=== PATIENT | male | born 1970 | race Caucasian/White ===

== ENCOUNTER 2017-10-31 01:56 | Emergency (ER) | payer MEDICARE ==
[2017-10-31] MEDS: ASPIRIN CHEWABLE 81 MG TABLET. PO ×2 (02:30)
[2017-10-31] MEDS: NITROGLYCERIN OINT 1 GM PACKET. TP ×2 (02:30)
[2017-10-31 02:44] LABS: ADD MAN DIFF? NO
[2017-10-31] MEDS ORDERED: CONTRAST GIVEN MC ×2 (02:45)
[2017-10-31 02:47] LABS: BASO % 1 % (0-3); EOS # 0.1 x10^3/uL (0.0-0.7); EOS % 1 % (0-3); HEMATOCRIT 45.2 % (39.0-53.0); HEMOGLOBIN 15.3 g/dL (13.0-17.5); LYMPH # 1.7 x10^3/uL (1.0-4.8); LYMPH % 26 % (24-48); MEAN CORPUSCULAR HEMOGLOBIN 28 pg (25-35); MEAN CORPUSCULAR HGB CONC 34 g/dL (31-37); MEAN CORPUSCULAR VOLUME 83 fL (79-100); MONO # 0.6 x10^3/uL (0.0-1.1); MONO % 10 % (0-9); NEUT % 62 % (31-73); PLATELET COUNT 194 x10^3/uL (140-400); RED BLOOD COUNT 5.45 x10^6/uL (4.30-5.70); WHITE BLOOD COUNT 6.4 x10^3/uL (4.0-11.0)
[2017-10-31 02:55] LABS: ANION GAP 4 (6-14); BLOOD UREA NITROGEN 16 mg/dL (8-26); BUN/CREATININE RATIO 13 (6-20); CALCIUM 9.2 mg/dL (8.5-10.1); CARBON DIOXIDE 32 mmol/L (21-32); CHLORIDE 105 mmol/L (98-107); CREATININE 1.2 mg/dL (0.7-1.3); GFR 64.9; GLUCOSE 122 mg/dL (70-99); POTASSIUM 4.2 mmol/L (3.5-5.1); SODIUM 141 mmol/L (136-145)
[2017-10-31 03:05] LABS: ALBUMIN 3.7 g/dL (3.4-5.0); ALBUMIN/GLOBULIN RATIO 1.2 (1.0-1.7); ALK PHOS 45 U/L (46-116); ALT (SGPT) 42 U/L (16-63); AST (SGOT) 20 U/L (15-37); TOTAL BILIRUBIN 0.3 mg/dL (0.2-1.0); TOTAL PROTEIN 6.9 g/dL (6.4-8.2)
[2017-10-31 03:09] LABS: TROPONINI < 0.017 ng/mL (0.000-0.055)
[2017-10-31] MEDS: IOHEXOL 300 MG/ML 100ML VIAL. IV ×2 (03:16)
[2017-10-31] MEDS ORDERED: KETOROLAC 30 MG/ML INJ. ×2 (05:14)
[2017-10-31] MEDS: KETOROLAC 30 MG/ML INJ. IV ×2 (05:15)
[2017-10-31] MEDS: ALPRAZolam 0.5 MG TABLET PO ×2 (05:57)
== END 2017-10-31 06:00 | disposition left against medical advice (07) ==
LOC: ER 01:56
DX: R07.89 Other chest pain (principal); F41.9 Anxiety disorder, unspecified; I25.10 Atherosclerotic heart disease of native coronary artery without angina pectoris; I10 Essential (primary) hypertension; E03.9 Hypothyroidism, unspecified; E10.9 Type 1 diabetes mellitus without complications; E78.00 Pure hypercholesterolemia, unspecified; Z79.82 Long term (current) use of aspirin; Z79.4 Long term (current) use of insulin
CPT/HCPCS: 36415; 71045; 71275; 74174; 80053; 84484; 85025; 93005; 96374; 99285-25; J1885; Q9967

== ENCOUNTER 2020-02-20 12:42 | Inpatient (IN) | payer MEDICARE ==
[~2020-02-20] VITALS: Ht 177.8 cm; Wt 93.0 kg
[~2020-02-20 12:42] MED LIST: CARV25TA PO; CARV25TA2 PO; FENO135C PO; LEVO100T5 PO; LISI10TA2 PO; METF500T16 PO; SIMV10TA15 PO
[2020-02-20] MEDS ORDERED: oxyCODONE/APAP 5/325 1 TAB TABLET PO PRN (13:00)
--- NOTE | 2020-02-20 13:00 | NUR ---
Pt direct admit. Arrived via wheelchair. Completed admission assessment. Initiated IV. Orders reviewed. Consults called. Oriented to room and routines. Water pitcher filled. Call light within reach. Will return to monitor.
--- NOTE | 2020-02-20 13:28 | PDOC2 ---
CONSULT Date of Consult Date of Consult DATE: 02/20/20 TIME: 13:18 Reason for Consult Reason for Consult: cholecystitis Referring Physician Referring Physician: Dr Larios Identification/Chief Complaint Chief Complaint vomiting Source Source: Chart review, Patient History of Present Illness Reason for Visit: Reports known gallstones for couple years. Last year pain to right side, back after eating. Last 2 weeks severe vomiting with eating, drinking, also reports multiple diarrhea stools a day for 2 weeks--some pain but main complaint is the vomiting. Does report chronic stools issues but this has been worse. No previous colonoscopy 60 pound weight loss in 18 months Does report probe tenderness with US today Past Medical History Cardiovascular: HTN, Hyperlipidemia Endocrine: Diabetes Past Surgical History Past Surgical History: Other (back) Family History Family History: No Significant Social History No ALCOHOL: other (4-6 beers most days of week) Drugs: Marijuana Current Medications Current Medications Current Medications Oxycodone/ Acetaminophen (Percocet 5/325) 1 tab PRN Q4HRS PRN PO MODERATE TO SEVERE PAIN; Start 02/20/20 at 13:00 Lorazepam (Ativan Inj) 2 mg PRN Q4HRS PRN IVP nausea; Start 02/20/20 at 13:00 Promethazine HCl (Phenergan) 12.5 mg PRN Q6HRS PRN PO NAUSEA/VOMITING; Start 02/20/20 at 13:00 Active Scripts Active Reported Trilipix (Fenofibric Acid (Choline)) 135 Mg Capsule. 1 Cap PO DAILY Coreg (Carvedilol) 25 Mg Tablet 1 Tab PO DAILY08 Lisinopril 10 Mg Tablet 1 Tab PO DAILY Simvastatin 10 Mg Tablet 1 Tab PO QHS Levothyroxine Sodium 100 Mcg Tablet 1 Tab PO DAILY Metformin Hcl 500 Mg Tablet 500 Mg PO BID Allergies Allergies: Coded Allergies: No Known Drug Allergies (Unverified , 06/17/17) ROS General: No: Chills, Other (fevers ) PSYCHOLOGICAL ROS: No: Anxiety, Depression Eyes: No Blurry vision, No Double vision HEENT: No: Heacaches, Sore Throat Hematological and Lymphatic: No: Bleeding Problems, Blood Clots Respiratory: No: Cough, SOB with excertion Cardiovascular: No Chest Pain, No Palpitations Gastrointestinal: Yes Other (see hpi) Genitourinary: No Dysuria, No Hematuria Musculoskeletal: No Joint Pain, No Muscle Pain Neurological: No Impaired Coord/balance, No Numbness/Tingling Skin: No Pruritus, No Rash Physical Exam General: Alert, Oriented X3, Cooperative HEENT: Atraumatic, PERRLA Lungs: Clear to auscultation, Normal air movement Heart: Regular rate, Normal S1, Normal S2 Abdomen: Soft, Other (TTP RUQ, nausea with palpation ) Extremities: No clubbing, No cyanosis Skin: No rashes, No breakdown Neuro: Normal gait, Normal speech Psych/Mental Status: Mental status NL, Mood NL MUSCULOSKELETAL: No joint tenderness, No deformity Assessment/Plan Assessment/Plan cholelithiasis diarrhea US reviewed cholelithiasis, no pericholecystitic fluid will ask GI to eval will check labs will check Covid for any possible surgery at some point BALDEMAR KNOWLES APRN Feb 20, 2020 13:28
[2020-02-20] MEDS ORDERED: DEXTROSE 50% 25 GM / 50ML DISP.SYRIN. IV PRN (13:30)
[2020-02-20 13:56] LABS: BASO % 1 % (0-3); EOS % 1 % (0-3); HEMATOCRIT 48.3 % (39.0-53.0); HEMOGLOBIN 16.9 g/dL (13.0-17.5); LYMPH # 0.8 x10^3/uL (1.0-4.8); LYMPH % 26 % (24-48); MEAN CORPUSCULAR HEMOGLOBIN 32 pg (25-35); MEAN CORPUSCULAR HGB CONC 35 g/dL (31-37); MEAN CORPUSCULAR VOLUME 92 fL (79-100); MONO # 0.5 x10^3/uL (0.0-1.1); MONO % 14 % (0-9); NEUT # 1.9 x10^3/uL (1.8-7.7); NEUT % 59 % (31-73); PLATELET COUNT 162 x10^3/uL (140-400); RED BLOOD COUNT 5.25 x10^6/uL (4.30-5.70); RED CELL DISTRIBUTION WIDTH 13.9 % (11.5-14.5); WHITE BLOOD COUNT 3.3 x10^3/uL (4.0-11.0)
[2020-02-20 14:05] LABS: PROTHROMBIN TIME PATIENT 12.7 SEC (11.7-14.0)
[2020-02-20 14:11] LABS: ALBUMIN 3.7 g/dL (3.4-5.0); ALBUMIN/GLOBULIN RATIO 1.2 (1.0-1.7); CALCIUM 8.4 mg/dL (8.5-10.1); CREATININE 1.1 mg/dL (0.7-1.3); GFR 71.1; POTASSIUM 4.1 mmol/L (3.5-5.1); TOTAL BILIRUBIN 0.9 mg/dL (0.2-1.0); TOTAL PROTEIN 6.8 g/dL (6.4-8.2)
--- NOTE | 2020-02-20 14:28 | PDOC2 ---
CONSULT Date of Consult Date of Consult DATE: 02/20/20 TIME: 14:25 Reason for Consult Reason for Consult: n/v/ abd pain/weight loss Past Medical History Cardiovascular: HTN, Hyperlipidemia Endocrine: Diabetes Past Surgical History Past Surgical History: Other (back) Family History Family History: No Significant Social History No ALCOHOL: other (4-6 beers most days of week) Drugs: Marijuana Current Medications Current Medications Current Medications Oxycodone/ Acetaminophen (Percocet 5/325) 1 tab PRN Q4HRS PRN PO MODERATE TO SEVERE PAIN; Start 02/20/20 at 13:00 Lorazepam (Ativan Inj) 2 mg PRN Q4HRS PRN IVP nausea; Start 02/20/20 at 13:00 Promethazine HCl (Phenergan) 12.5 mg PRN Q6HRS PRN PO NAUSEA/VOMITING; Start 02/20/20 at 13:00 Insulin Human Lispro (HumaLOG) 0-5 UNITS TIDWMEALS SQ ; Start 02/20/20 at 17:00 Dextrose (Dextrose 50%-Water Syringe) 12.5 gm PRN Q15MIN PRN IV SEE COMMENTS; Start 02/20/20 at 13:30 Active Scripts Active Reported Trilipix (Fenofibric Acid (Choline)) 135 Mg Capsule.dr 1 Cap PO DAILY Coreg (Carvedilol) 25 Mg Tablet 1 Tab PO DAILY08 Lisinopril 10 Mg Tablet 1 Tab PO DAILY Simvastatin 10 Mg Tablet 1 Tab PO QHS Levothyroxine Sodium 100 Mcg Tablet 1 Tab PO DAILY Metformin Hcl 500 Mg Tablet 500 Mg PO BID Allergies Allergies: Coded Allergies: No Known Drug Allergies (Unverified , 06/17/17) Labs Labs Laboratory Tests Test 02/20/20 13:40 02/20/20 13:45 White Blood Count 3.3 x10^3/uL (4.0-11.0) Red Blood Count 5.25 x10^6/uL (4.30-5.70) Hemoglobin 16.9 g/dL (13.0-17.5) Hematocrit 48.3 % (39.0-53.0) Mean Corpuscular Volume 92 fL (79-100) Mean Corpuscular Hemoglobin 32 pg (25-35) Mean Corpuscular Hemoglobin Concent 35 g/dL (31-37) Red Cell Distribution Width 13.9 % (11.5-14.5) Platelet Count 162 x10^3/uL (140-400) Neutrophils (%) (Auto) 59 % (31-73) Lymphocytes (%) (Auto) 26 % (24-48) Monocytes (%) (Auto) 14 % (0-9) Eosinophils (%) (Auto) 1 % (0-3) Basophils (%) (Auto) 1 % (0-3) Neutrophils # (Auto) 1.9 x10^3/uL (1.8-7.7) Lymphocytes # (Auto) 0.8 x10^3/uL (1.0-4.8) Monocytes # (Auto) 0.5 x10^3/uL (0.0-1.1) Eosinophils # (Auto) 0.0 x10^3/uL (0.0-0.7) Basophils # (Auto) 0.0 x10^3/uL (0.0-0.2) Prothrombin Time 12.7 SEC (11.7-14.0) Prothromb Time International Ratio 1.0 (0.8-1.1) Sodium Level 140 mmol/L (136-145) Potassium Level 4.1 mmol/L (3.5-5.1) Chloride Level 99 mmol/L (98-107) Carbon Dioxide Level 28 mmol/L (21-32) Anion Gap 13 (6-14) Blood Urea Nitrogen 10 mg/dL (8-26) Creatinine 1.1 mg/dL (0.7-1.3) Estimated GFR (Cockcroft-Gault) 71.1 BUN/Creatinine Ratio 9 (6-20) Glucose Level 85 mg/dL (70-99) Calcium Level 8.4 mg/dL (8.5-10.1) Total Bilirubin 0.9 mg/dL (0.2-1.0) Aspartate Amino Transf (AST/SGOT) 110 U/L (15-37) Alanine Aminotransferase (ALT/SGPT) 99 U/L (16-63) Alkaline Phosphatase 59 U/L (46-116) Total Protein 6.8 g/dL (6.4-8.2) Albumin 3.7 g/dL (3.4-5.0) Albumin/Globulin Ratio 1.2 (1.0-1.7) Lipase 83 U/L (73-393) Glucose (Fingerstick) 86 mg/dL (70-99) Laboratory Tests Test 02/20/20 13:40 02/20/20 13:45 White Blood Count 3.3 x10^3/uL (4.0-11.0) Red Blood Count 5.25 x10^6/uL (4.30-5.70) Hemoglobin 16.9 g/dL (13.0-17.5) Hematocrit 48.3 % (39.0-53.0) Mean Corpuscular Volume 92 fL (79-100) Mean Corpuscular Hemoglobin 32 pg (25-35) Mean Corpuscular Hemoglobin Concent 35 g/dL (31-37) Red Cell Distribution Width 13.9 % (11.5-14.5) Platelet Count 162 x10^3/uL (140-400) Neutrophils (%) (Auto) 59 % (31-73) Lymphocytes (%) (Auto) 26 % (24-48) Monocytes (%) (Auto) 14 % (0-9) Eosinophils (%) (Auto) 1 % (0-3) Basophils (%) (Auto) 1 % (0-3) Neutrophils # (Auto) 1.9 x10^3/uL (1.8-7.7) Lymphocytes # (Auto) 0.8 x10^3/uL (1.0-4.8) Monocytes # (Auto) 0.5 x10^3/uL (0.0-1.1) Eosinophils # (Auto) 0.0 x10^3/uL (0.0-0.7) Basophils # (Auto) 0.0 x10^3/uL (0.0-0.2) Prothrombin Time 12.7 SEC (11.7-14.0) Prothromb Time International Ratio 1.0 (0.8-1.1) Sodium Level 140 mmol/L (136-145) Potassium Level 4.1 mmol/L (3.5-5.1) Chloride Level 99 mmol/L (98-107) Carbon Dioxide Level 28 mmol/L (21-32) Anion Gap 13 (6-14) Blood Urea Nitrogen 10 mg/dL (8-26) Creatinine 1.1 mg/dL (0.7-1.3) Estimated GFR (Cockcroft-Gault) 71.1 BUN/Creatinine Ratio 9 (6-20) Glucose Level 85 mg/dL (70-99) Calcium Level 8.4 mg/dL (8.5-10.1) Total Bilirubin 0.9 mg/dL (0.2-1.0) Aspartate Amino Transf (AST/SGOT) 110 U/L (15-37) Alanine Aminotransferase (ALT/SGPT) 99 U/L (16-63) Alkaline Phosphatase 59 U/L (46-116) Total Protein 6.8 g/dL (6.4-8.2) Albumin 3.7 g/dL (3.4-5.0) Albumin/Globulin Ratio 1.2 (1.0-1.7) Lipase 83 U/L (73-393) Glucose (Fingerstick) 86 mg/dL (70-99) Assessment/Plan Assessment/Plan Abd pain- with cholelithiasis, weight loss, and diarrhea. Etiology to be determiend. Gastroparesis, gastric outlet obstruction, malignancy, IBD, and/or GB idsease in differential Plan Ct scan abd/pelvis to further asess EGD in am if abvove uhelpful. COlonoscopy deferred due to prep concerns with limited oral intake. Full note dictated TONIA BOATENG MD Feb 20, 2020 14:28
[2020-02-20] MEDS ORDERED: IV NORMAL SALINE 1000ML BAG 1,000 ML IV ONE (14:45)
[2020-02-20] MEDS ORDERED: LISI-334 PO (14:46)
[2020-02-20] MEDS ORDERED: AMLO10TA8 PO (14:46)
[2020-02-20] MEDS ORDERED: LEVO88TA4 PO (14:46)
[2020-02-20] MEDS: PROMETHAZINE 12.5 MG TABLET. PO PRN ×2 (15:24→21:06)
--- NOTE | 2020-02-20 15:26 | PDOC1 ---
History and Physical Date of Admission Date of Admission DATE: 02/20/20 TIME: 15:21 Source Source: Chart review, Patient History of Present Illness History of Present Illness nt in from [facility] for admit. he complains of nausea and wretchign with vomiting that has been intermittent for over a few weeks. He has sometimes RLQ pain, mostly vomits if he has pain, chronic pain, chronic back pain, he has dm2, feels hypoglycemic at times, has recent 40 lbs weight loss. Past Medical History Cardiovascular: HTN, Hyperlipidemia Endocrine: Diabetes Past Surgical History Past Surgical History: Other (back) Family History Family History: No Significant Social History Smoke: No ALCOHOL: none Drugs: Marijuana (occassional ) Current Medications Current Medications Current Medications Oxycodone/ Acetaminophen (Percocet 5/325) 1 tab PRN Q4HRS PRN PO MODERATE TO SEVERE PAIN; Start 02/20/20 at 13:00 Lorazepam (Ativan Inj) 2 mg PRN Q4HRS PRN IVP nausea; Start 02/20/20 at 13:00 Promethazine HCl (Phenergan) 12.5 mg PRN Q6HRS PRN PO NAUSEA/VOMITING; Start 02/20/20 at 13:00 Insulin Human Lispro (HumaLOG) 0-5 UNITS TIDWMEALS SQ ; Start 02/20/20 at 17:00 Dextrose (Dextrose 50%-Water Syringe) 12.5 gm PRN Q15MIN PRN IV SEE COMMENTS; Start 02/20/20 at 13:30 Sodium Chloride 1,000 ml @ 125 mls/hr 1X ONCE IV ; Start 02/20/20 at 14:45; Stop 02/20/20 at 22:44 Active Scripts Active Reported Lisinopril 20 Mg Tablet 1 Tab PO DAILY Amlodipine Besylate 10 Mg Tablet 10 Mg PO DAILY Levothyroxine Sodium 88 Mcg Tablet 1 Tab PO DAILY Coreg (Carvedilol) 25 Mg Tablet 1 Tab PO DAILY08 Allergies Allergies: Coded Allergies: No Known Drug Allergies (Unverified , 06/17/17) ROS General: No: Chills, Night Sweats, Fatigue, Malaise, Appetite, Other PSYCHOLOGICAL ROS: No: Anxiety, Behavioral Disorder, Concentration difficultie, Decreased libido, Depression, Disorientation, Hallucinations, Hostility, Irritablity, Memory difficulties, Mood Swings, Obsessive thoughts, Physical abuse, Sexual abuse, Sleep disturbances, Suicidal ideation, Other Eyes: No Blurry vision, No Decreased vision, No Double vision, No Dry eyes, No Excessive tearing, No Eye Pain, No Itchy Eyes, No Loss of vision, No Photophobia, No Scotomata, No Uses contacts, No Uses glasses, No Other HEENT: No: Heacaches, Visual Changes, Hearing change, Nasal congestion, Nasal discharge, Oral lesions, Sinus pain, Sore Throat, Epistaxis, Sneezing, Snoring, Tinnitus, Vertigo, Vocal changes, Other Respiratory: No: Cough, Hemoptysis, Orthopnea, Pleuritic Pain, Shortness of breath, SOB with excertion, Sputum Changes, Stridor, Tachypnea, Wheezing, Other Cardiovascular: No Chest Pain, No Palpitations, No Orthopnea, No Paroxysmal Noc. Dyspnea, No Edema, No Lt Headedness, No Other Gastrointestinal: Yes Nausea, Yes Vomiting, Yes Abdominal Pain Genitourinary: No Dysuria, No Frequency, No Incontinence, No Hematuria, No Retention, No Discharge, No Urgency, No Pain, No Flank Pain, No Other, No , No , No , No , No , No , No Musculoskeletal: No Gait Disturbance, No Joint Pain, No Joint Stiffness, No Joint Swelling, No Muscle Pain, No Muscular Weakness, No Pain In:, No Swelling I n:, No Other Neurological: No Behavorial Changes, No Bowel/Bladder ControlChng, No Confusion, No Dizziness, No Headaches, No Impaired Coord/balance, No Memory Loss, No Numbness/Tingling, No Seizures, No Speech Problems, No Tremors, No Visual Changes, No Weakness, No Other Skin: Yes Dry Skin; No Eczema, No Hair Changes, No Lumps, No Mole Changes, No Mottling, No Nail Changes, No Pruritus, No Rash, No Skin Lesion Changes, No Other, No Acne Physical Exam General: Alert, Oriented X3, No acute distress HEENT: Atraumatic, Mucous membr. moist/pink Lungs: Clear to auscultation, Normal air movement Heart: S1S2, RRR, no gallops, no murmurs Extremities: No cyanosis, No edema, Normal pulses Skin: No breakdown Neuro: Normal speech, Sensation intact Psych/Mental Status: Mental status NL, Mood NL Labs Labs Laboratory Tests Test 02/20/20 13:40 02/20/20 13:45 White Blood Count 3.3 x10^3/uL (4.0-11.0) Red Blood Count 5.25 x10^6/uL (4.30-5.70) Hemoglobin 16.9 g/dL (13.0-17.5) Hematocrit 48.3 % (39.0-53.0) Mean Corpuscular Volume 92 fL (79-100) Mean Corpuscular Hemoglobin 32 pg (25-35) Mean Corpuscular Hemoglobin Concent 35 g/dL (31-37) Red Cell Distribution Width 13.9 % (11.5-14.5) Platelet Count 162 x10^3/uL (140-400) Neutrophils (%) (Auto) 59 % (31-73) Lymphocytes (%) (Auto) 26 % (24-48) Monocytes (%) (Auto) 14 % (0-9) Eosinophils (%) (Auto) 1 % (0-3) Basophils (%) (Auto) 1 % (0-3) Neutrophils # (Auto) 1.9 x10^3/uL (1.8-7.7) Lymphocytes # (Auto) 0.8 x10^3/uL (1.0-4.8) Monocytes # (Auto) 0.5 x10^3/uL (0.0-1.1) Eosinophils # (Auto) 0.0 x10^3/uL (0.0-0.7) Basophils # (Auto) 0.0 x10^3/uL (0.0-0.2) Prothrombin Time 12.7 SEC (11.7-14.0) Prothromb Time International Ratio 1.0 (0.8-1.1) Sodium Level 140 mmol/L (136-145) Potassium Level 4.1 mmol/L (3.5-5.1) Chloride Level 99 mmol/L (98-107) Carbon Dioxide Level 28 mmol/L (21-32) Anion Gap 13 (6-14) Blood Urea Nitrogen 10 mg/dL (8-26) Creatinine 1.1 mg/dL (0.7-1.3) Estimated GFR (Cockcroft-Gault) 71.1 BUN/Creatinine Ratio 9 (6-20) Glucose Level 85 mg/dL (70-99) Calcium Level 8.4 mg/dL (8.5-10.1) Total Bilirubin 0.9 mg/dL (0.2-1.0) Aspartate Amino Transf (AST/SGOT) 110 U/L (15-37) Alanine Aminotransferase (ALT/SGPT) 99 U/L (16-63) Alkaline Phosphatase 59 U/L (46-116) Total Protein 6.8 g/dL (6.4-8.2) Albumin 3.7 g/dL (3.4-5.0) Albumin/Globulin Ratio 1.2 (1.0-1.7) Lipase 83 U/L (73-393) Glucose (Fingerstick) 86 mg/dL (70-99) Laboratory Tests Test 02/20/20 13:40 02/20/20 13:45 White Blood Count 3.3 x10^3/uL (4.0-11.0) Red Blood Count 5.25 x10^6/uL (4.30-5.70) Hemoglobin 16.9 g/dL (13.0-17.5) Hematocrit 48.3 % (39.0-53.0) Mean Corpuscular Volume 92 fL (79-100) Mean Corpuscular Hemoglobin 32 pg (25-35) Mean Corpuscular Hemoglobin Concent 35 g/dL (31-37) Red Cell Distribution Width 13.9 % (11.5-14.5) Platelet Count 162 x10^3/uL (140-400) Neutrophils (%) (Auto) 59 % (31-73) Lymphocytes (%) (Auto) 26 % (24-48) Monocytes (%) (Auto) 14 % (0-9) Eosinophils (%) (Auto) 1 % (0-3) Basophils (%) (Auto) 1 % (0-3) Neutrophils # (Auto) 1.9 x10^3/uL (1.8-7.7) Lymphocytes # (Auto) 0.8 x10^3/uL (1.0-4.8) Monocytes # (Auto) 0.5 x10^3/uL (0.0-1.1) Eosinophils # (Auto) 0.0 x10^3/uL (0.0-0.7) Basophils # (Auto) 0.0 x10^3/uL (0.0-0.2) Prothrombin Time 12.7 SEC (11.7-14.0) Prothromb Time International Ratio 1.0 (0.8-1.1) Sodium Level 140 mmol/L (136-145) Potassium Level 4.1 mmol/L (3.5-5.1) Chloride Level 99 mmol/L (98-107) Carbon Dioxide Level 28 mmol/L (21-32) Anion Gap 13 (6-14) Blood Urea Nitrogen 10 mg/dL (8-26) Creatinine 1.1 mg/dL (0.7-1.3) Estimated GFR (Cockcroft-Gault) 71.1 BUN/Creatinine Ratio 9 (6-20) Glucose Level 85 mg/dL (70-99) Calcium Level 8.4 mg/dL (8.5-10.1) Total Bilirubin 0.9 mg/dL (0.2-1.0) Aspartate Amino Transf (AST/SGOT) 110 U/L (15-37) Alanine Aminotransferase (ALT/SGPT) 99 U/L (16-63) Alkaline Phosphatase 59 U/L (46-116) Total Protein 6.8 g/dL (6.4-8.2) Albumin 3.7 g/dL (3.4-5.0) Albumin/Globulin Ratio 1.2 (1.0-1.7) Lipase 83 U/L (73-393) Glucose (Fingerstick) 86 mg/dL (70-99) VTE Prophylaxis Ordered VTE Prophylaxis Devices: No VTE Pharmacological Prophylaxi: No Assessment/Plan Assessment/Plan nausea and abdominal pain GI and gen surg consult gallstones seen on US, consider ada removal GI to order CT scan, consider Upper GI eval, dm2 Justicifation of Admission Dx: Justifications for Admission: Justification of Admission Dx: No (obs) ELIECER DAVIS MD Feb 20, 2020 15:26
[2020-02-20 15:29] VITALS: BP 140/99
[2020-02-20] MEDS ORDERED: IOHEXOL 300 MG/ML 100ML VIAL. IV ONE (15:30)
[2020-02-20] MEDS ORDERED: ONDANSETRON PF 4 MG/2 ML VIAL. IVP PRN (15:30)
[2020-02-20] MEDS ORDERED: ZOLPIDEM 5 MG TABLET. PO PRN (15:30)
--- NOTE | 2020-02-20 16:04 | RAD ---
Exam: CT abdomen and pelvis with contrast INDICATION: Abdominal pain TECHNIQUE: Sequential axial images through the abdomen and pelvis obtained following the administration of 75 mL of Omni 300 IV contrast. Sagittal and coronal reformatted images were reconstructed from the axial data and reviewed. Comparisons: 10/31/2017 FINDINGS: Heart size is normal. No pericardial effusion. Visualized lung bases are clear. No pleural effusion There is diffuse hepatic steatosis. Numerous gallstones are noted within a predominantly contracted gallbladder without adjacent inflammatory changes. Spleen, pancreas and adrenals are unremarkable. Kidneys demonstrate symmetric enhancement. No perinephric inflammation or hydronephrosis. No renal or ureteral calculi are identified. Bladder is partially distended and appears thin-walled. Prostate is not enlarged. Submucosal fat deposition noted predominantly at the ascending colon. Appendix is normal. No free abdominal air or fluid. No obstruction. Abdominal aorta has a normal course and caliber. Abdominal vasculature is patent. No enlarged intra-abdominal lymph nodes are identified. No suspicious osseous lesions or acute fractures. Lumbar disc spacers noted at L4-L5 and L5-S1. IMPRESSION: 1. No acute process identified within the abdomen or pelvis. 2. Diffuse severe hepatic steatosis. 3. Submucosal fat deposition noted probably within the ascending colon, likely sequela of chronic repetitive inflammation. Exposure: One or more of the following in the visualized dose reduction techniques were utilized for this examination: 1. Automated exposure control 2. Adjustment of the MA and/or KV according to patient size 3. Use of iterative of reconstructive technique Electronically signed by: Clint Vaughn MD (02/20/2020 4:01 PM) [id number]
[2020-02-20] MEDS: amLODIPine BESYLATE 10 MG TABLET PO SCH (16:24)
[2020-02-20] MEDS: LISINOPRIL 20 MG TABLET PO SCH (16:25)
[2020-02-20] MEDS: CARVEDILOL 12.5 MG TABLET. PO SCH (16:25)
[2020-02-20] MEDS: INSULIN LISPRO 300 UNITS/3 ML VIAL. SQ SCH (17:00)
--- NOTE | 2020-02-20 18:00 | NUR ---
Covid test obtained and sent to lab.
[2020-02-20 19:00] VITALS: BP 139/89
[2020-02-20 23:01] VITALS: BP 118/74
[2020-02-21 03:02] VITALS: BP 169/86
--- NOTE | 2020-02-21 04:28 | CONS ---
DATE OF CONSULTATION: 02/20/2020 REASON FOR CONSULTATION: Abdominal pain, nausea, vomiting, weight loss. HISTORY OF PRESENT ILLNESS: A 49-year-old male with past medical history significant for hypertension, hyperlipidemia and diabetes, [facility] with a 2-month history of weight loss, he lost approximately 65 pounds in the past year, associated with multiple diarrheal stools daily with bleeding as well as nausea and vomiting with a small number of meals. With this and the fact he had increased pain, he underwent imaging with ultrasound which did reveal cholelithiasis and has been admitted for further evaluation and care. This was present previously on CT scan several years ago, which was performed for abdominal pain at that time. He did not have the diarrhea at that time nor the weight loss. There is no family history of inflammatory bowel disease or colon cancer. With continued issues, requests additional evaluation. He does not take any NSAIDs on a regular basis, has no risk factors for peptic ulcer disease. PAST MEDICAL HISTORY: Hypertension, hyperlipidemia, diabetes. ALLERGIES: None. MEDICATIONS: Include insulin, Phenergan, lorazepam. FAMILY AND SOCIAL HISTORY: Does not drink or smoke at this time. Family history is noncontributory. REVIEW OF SYSTEMS: As above. PHYSICAL EXAMINATION: GENERAL: Reveals a well-nourished male who is alert, cooperative, in no acute distress. VITAL SIGNS: To be recorded. LUNGS: Clear. CARDIOVASCULAR: Reveals an S1, S2 without S3, S4, or appreciable murmur. ABDOMEN: With a soft abdomen, normal bowel sounds, without appreciable hepatosplenomegaly. EXTREMITIES: Reveals no cyanosis, clubbing, or edema. There is epigastric tenderness on deep palpation. LABORATORY STUDIES: Hemoglobin 16.0, hematocrit 48.3, white count 3.3, platelet count 162,000. Sodium 140, potassium 4.1, chloride 99, BUN is 10, creatinine 1.1, glucose is 88, calcium is 8.4, total bilirubin 0.9, AST of 110, ALT of 99, alkaline phosphatase 59, total protein 5.8, lipase is 83. INR is 1.0. Ultrasound reveals cholelithiasis. IMPRESSION AND RECOMMENDATIONS: Abdominal pain, nausea, vomiting, cholelithiasis, weight loss, diarrhea. Etiology is to be determined. Recommend the patient to proceed with CT scan today of the abdomen and pelvis to further assess for possible malignancies, superior mesenteric artery and/or celiac artery stenosis, ulcerative disease and/or colon cancer with a change in bowel habits. We will then proceed with esophagogastroduodenoscopy tomorrow if CT directs further attention. Colonoscopy would not be performed presently as he has inability to tolerate the prep with early satiety, nausea, and vomiting. TONIA BOATENG MD DR: ASIA/larry JOB#: [id number] / [id number]
[2020-02-21 05:38] LABS: BASO % 1 % (0-3); EOS % 1 % (0-3); HEMATOCRIT 46.4 % (39.0-53.0); LYMPH # 0.8 x10^3/uL (1.0-4.8); LYMPH % 20 % (24-48); MEAN CORPUSCULAR HEMOGLOBIN 32 pg (25-35); MEAN CORPUSCULAR HGB CONC 35 g/dL (31-37); MEAN CORPUSCULAR VOLUME 93 fL (79-100); MONO # 0.6 x10^3/uL (0.0-1.1); MONO % 14 % (0-9); NEUT # 2.5 x10^3/uL (1.8-7.7); NEUT % 64 % (31-73); PLATELET COUNT 133 x10^3/uL (140-400); RED BLOOD COUNT 5.01 x10^6/uL (4.30-5.70); RED CELL DISTRIBUTION WIDTH 13.9 % (11.5-14.5); WHITE BLOOD COUNT 3.9 x10^3/uL (4.0-11.0)
[2020-02-21 05:50] LABS: ALBUMIN 3.5 g/dL (3.4-5.0); ALBUMIN/GLOBULIN RATIO 1.3 (1.0-1.7); CALCIUM 8.2 mg/dL (8.5-10.1); GFR 79.4; POTASSIUM 3.5 mmol/L (3.5-5.1); TOTAL BILIRUBIN 1.4 mg/dL (0.2-1.0); TOTAL PROTEIN 6.1 g/dL (6.4-8.2)
[2020-02-21] MEDS ORDERED: LEVOTHYROXINE 88 MCG TABLET PO SCH (06:00)
[2020-02-21 07:00] VITALS: BP 135/74
[2020-02-21] MEDS ORDERED: IV RINGERS,LACTATED 1000ML 1,000 ML IV SCH ×2 (07:00)
[2020-02-21] MEDS ORDERED: fentaNYL PF VIAL 100 MCG/2 ML VIAL IV PRN ×4 (07:00)
[2020-02-21] MEDS ORDERED: HYDROmorphone 2 MG/ML VIAL IV PRN ×2 (07:00)
[2020-02-21] MEDS ORDERED: ONDANSETRON PF 4 MG/2 ML VIAL. IV PRN ×2 (07:00)
[2020-02-21] MEDS ORDERED: PROCHLORPERAZINE 10 MG/2 ML VIAL. IV PRN ×2 (07:00)
[2020-02-21] MEDS ORDERED: MORPHINE SULFATE 2 MG/ML VIAL. IV PRN ×2 (07:00)
[2020-02-21] MEDS: INSULIN LISPRO 300 UNITS/3 ML VIAL. SQ SCH ×2 (07:18→10:43)
[2020-02-21] MEDS: CARVEDILOL 12.5 MG TABLET. PO SCH (07:18)
[2020-02-21] MEDS: amLODIPine BESYLATE 10 MG TABLET PO SCH (07:19)
[2020-02-21] MEDS: LISINOPRIL 20 MG TABLET PO SCH (07:19)
--- NOTE | 2020-02-21 08:30 | PDOC ---
SURGICAL PROGRESS NOTE Subjective Patient complaining of nausea this morning no vomiting no acute changes Vital Signs Vital Signs Date Time Temp Pulse Resp B/P (MAP) Pulse Ox O2 Delivery O2 Flow Rate FiO2 02/21/20 07:17 Room Air 02/21/20 07:00 98.7 70 18 135/74 (94) 96 98.7 I&O Intake and Output 02/21/20 07:00 Intake Total 2590 ml Output Total 0 ml Balance 2590 ml Intake Oral 840 ml IV Total 875 ml Other 875 ml Output Urine Total 0 ml # Voids 2 PATIENT HAS A HAMMOND: No General: Alert, Oriented X3, Cooperative, No acute distress Abdomen: Normal bowel sounds, Soft, No tenderness Labs Laboratory Tests Test 02/20/20 13:40 02/20/20 13:45 02/20/20 16:28 02/20/20 20:39 White Blood Count 3.3 x10^3/uL (4.0-11.0) Red Blood Count 5.25 x10^6/uL (4.30-5.70) Hemoglobin 16.9 g/dL (13.0-17.5) Hematocrit 48.3 % (39.0-53.0) Mean Corpuscular Volume 92 fL (79-100) Mean Corpuscular Hemoglobin 32 pg (25-35) Mean Corpuscular Hemoglobin Concent 35 g/dL (31-37) Red Cell Distribution Width 13.9 % (11.5-14.5) Platelet Count 162 x10^3/uL (140-400) Neutrophils (%) (Auto) 59 % (31-73) Lymphocytes (%) (Auto) 26 % (24-48) Monocytes (%) (Auto) 14 % (0-9) Eosinophils (%) (Auto) 1 % (0-3) Basophils (%) (Auto) 1 % (0-3) Neutrophils # (Auto) 1.9 x10^3/uL (1.8-7.7) Lymphocytes # (Auto) 0.8 x10^3/uL (1.0-4.8) Monocytes # (Auto) 0.5 x10^3/uL (0.0-1.1) Eosinophils # (Auto) 0.0 x10^3/uL (0.0-0.7) Basophils # (Auto) 0.0 x10^3/uL (0.0-0.2) Prothrombin Time 12.7 SEC (11.7-14.0) Prothromb Time International Ratio 1.0 (0.8-1.1) Sodium Level 140 mmol/L (136-145) Potassium Level 4.1 mmol/L (3.5-5.1) Chloride Level 99 mmol/L (98-107) Carbon Dioxide Level 28 mmol/L (21-32) Anion Gap 13 (6-14) Blood Urea Nitrogen 10 mg/dL (8-26) Creatinine 1.1 mg/dL (0.7-1.3) Estimated GFR (Cockcroft-Gault) 71.1 BUN/Creatinine Ratio 9 (6-20) Glucose Level 85 mg/dL (70-99) Calcium Level 8.4 mg/dL (8.5-10.1) Total Bilirubin 0.9 mg/dL (0.2-1.0) Aspartate Amino Transf (AST/SGOT) 110 U/L (15-37) Alanine Aminotransferase (ALT/SGPT) 99 U/L (16-63) Alkaline Phosphatase 59 U/L (46-116) Total Protein 6.8 g/dL (6.4-8.2) Albumin 3.7 g/dL (3.4-5.0) Albumin/Globulin Ratio 1.2 (1.0-1.7) Lipase 83 U/L (73-393) Glucose (Fingerstick) 86 mg/dL (70-99) 83 mg/dL (70-99) 126 mg/dL (70-99) Test 02/21/20 04:07 02/21/20 07:05 White Blood Count 3.9 x10^3/uL (4.0-11.0) Red Blood Count 5.01 x10^6/uL (4.30-5.70) Hemoglobin 16.0 g/dL (13.0-17.5) Hematocrit 46.4 % (39.0-53.0) Mean Corpuscular Volume 93 fL (79-100) Mean Corpuscular Hemoglobin 32 pg (25-35) Mean Corpuscular Hemoglobin Concent 35 g/dL (31-37) Red Cell Distribution Width 13.9 % (11.5-14.5) Platelet Count 133 x10^3/uL (140-400) Neutrophils (%) (Auto) 64 % (31-73) Lymphocytes (%) (Auto) 20 % (24-48) Monocytes (%) (Auto) 14 % (0-9) Eosinophils (%) (Auto) 1 % (0-3) Basophils (%) (Auto) 1 % (0-3) Neutrophils # (Auto) 2.5 x10^3/uL (1.8-7.7) Lymphocytes # (Auto) 0.8 x10^3/uL (1.0-4.8) Monocytes # (Auto) 0.6 x10^3/uL (0.0-1.1) Eosinophils # (Auto) 0.0 x10^3/uL (0.0-0.7) Basophils # (Auto) 0.0 x10^3/uL (0.0-0.2) Sodium Level 139 mmol/L (136-145) Potassium Level 3.5 mmol/L (3.5-5.1) Chloride Level 100 mmol/L (98-107) Carbon Dioxide Level 28 mmol/L (21-32) Anion Gap 11 (6-14) Blood Urea Nitrogen 10 mg/dL (8-26) Creatinine 1.0 mg/dL (0.7-1.3) Estimated GFR (Cockcroft-Gault) 79.4 BUN/Creatinine Ratio 10 (6-20) Glucose Level 78 mg/dL (70-99) Calcium Level 8.2 mg/dL (8.5-10.1) Total Bilirubin 1.4 mg/dL (0.2-1.0) Aspartate Amino Transf (AST/SGOT) 62 U/L (15-37) Alanine Aminotransferase (ALT/SGPT) 81 U/L (16-63) Alkaline Phosphatase 54 U/L (46-116) Total Protein 6.1 g/dL (6.4-8.2) Albumin 3.5 g/dL (3.4-5.0) Albumin/Globulin Ratio 1.3 (1.0-1.7) Thyroid Stimulating Hormone (TSH) 4.087 uIU/mL (0.358-3.74) Glucose (Fingerstick) 83 mg/dL (70-99) Laboratory Tests Test 02/20/20 13:40 02/20/20 13:45 02/20/20 16:28 02/20/20 20:39 White Blood Count 3.3 x10^3/uL (4.0-11.0) Red Blood Count 5.25 x10^6/uL (4.30-5.70) Hemoglobin 16.9 g/dL (13.0-17.5) Hematocrit 48.3 % (39.0-53.0) Mean Corpuscular Volume 92 fL (79-100) Mean Corpuscular Hemoglobin 32 pg (25-35) Mean Corpuscular Hemoglobin Concent 35 g/dL (31-37) Red Cell Distribution Width 13.9 % (11.5-14.5) Platelet Count 162 x10^3/uL (140-400) Neutrophils (%) (Auto) 59 % (31-73) Lymphocytes (%) (Auto) 26 % (24-48) Monocytes (%) (Auto) 14 % (0-9) Eosinophils (%) (Auto) 1 % (0-3) Basophils (%) (Auto) 1 % (0-3) Neutrophils # (Auto) 1.9 x10^3/uL (1.8-7.7) Lymphocytes # (Auto) 0.8 x10^3/uL (1.0-4.8) Monocytes # (Auto) 0.5 x10^3/uL (0.0-1.1) Eosinophils # (Auto) 0.0 x10^3/uL (0.0-0.7) Basophils # (Auto) 0.0 x10^3/uL (0.0-0.2) Prothrombin Time 12.7 SEC (11.7-14.0) Prothromb Time International Ratio 1.0 (0.8-1.1) Sodium Level 140 mmol/L (136-145) Potassium Level 4.1 mmol/L (3.5-5.1) Chloride Level 99 mmol/L (98-107) Carbon Dioxide Level 28 mmol/L (21-32) Anion Gap 13 (6-14) Blood Urea Nitrogen 10 mg/dL (8-26) Creatinine 1.1 mg/dL (0.7-1.3) Estimated GFR (Cockcroft-Gault) 71.1 BUN/Creatinine Ratio 9 (6-20) Glucose Level 85 mg/dL (70-99) Calcium Level 8.4 mg/dL (8.5-10.1) Total Bilirubin 0.9 mg/dL (0.2-1.0) Aspartate Amino Transf (AST/SGOT) 110 U/L (15-37) Alanine Aminotransferase (ALT/SGPT) 99 U/L (16-63) Alkaline Phosphatase 59 U/L (46-116) Total Protein 6.8 g/dL (6.4-8.2) Albumin 3.7 g/dL (3.4-5.0) Albumin/Globulin Ratio 1.2 (1.0-1.7) Lipase 83 U/L (73-393) Glucose (Fingerstick) 86 mg/dL (70-99) 83 mg/dL (70-99) 126 mg/dL (70-99) Test 02/21/20 04:07 02/21/20 07:05 White Blood Count 3.9 x10^3/uL (4.0-11.0) Red Blood Count 5.01 x10^6/uL (4.30-5.70) Hemoglobin 16.0 g/dL (13.0-17.5) Hematocrit 46.4 % (39.0-53.0) Mean Corpuscular Volume 93 fL (79-100) Mean Corpuscular Hemoglobin 32 pg (25-35) Mean Corpuscular Hemoglobin Concent 35 g/dL (31-37) Red Cell Distribution Width 13.9 % (11.5-14.5) Platelet Count 133 x10^3/uL (140-400) Neutrophils (%) (Auto) 64 % (31-73) Lymphocytes (%) (Auto) 20 % (24-48) Monocytes (%) (Auto) 14 % (0-9) Eosinophils (%) (Auto) 1 % (0-3) Basophils (%) (Auto) 1 % (0-3) Neutrophils # (Auto) 2.5 x10^3/uL (1.8-7.7) Lymphocytes # (Auto) 0.8 x10^3/uL (1.0-4.8) Monocytes # (Auto) 0.6 x10^3/uL (0.0-1.1) Eosinophils # (Auto) 0.0 x10^3/uL (0.0-0.7) Basophils # (Auto) 0.0 x10^3/uL (0.0-0.2) Sodium Level 139 mmol/L (136-145) Potassium Level 3.5 mmol/L (3.5-5.1) Chloride Level 100 mmol/L (98-107) Carbon Dioxide Level 28 mmol/L (21-32) Anion Gap 11 (6-14) Blood Urea Nitrogen 10 mg/dL (8-26) Creatinine 1.0 mg/dL (0.7-1.3) Estimated GFR (Cockcroft-Gault) 79.4 BUN/Creatinine Ratio 10 (6-20) Glucose Level 78 mg/dL (70-99) Calcium Level 8.2 mg/dL (8.5-10.1) Total Bilirubin 1.4 mg/dL (0.2-1.0) Aspartate Amino Transf (AST/SGOT) 62 U/L (15-37) Alanine Aminotransferase (ALT/SGPT) 81 U/L (16-63) Alkaline Phosphatase 54 U/L (46-116) Total Protein 6.1 g/dL (6.4-8.2) Albumin 3.5 g/dL (3.4-5.0) Albumin/Globulin Ratio 1.3 (1.0-1.7) Thyroid Stimulating Hormone (TSH) 4.087 uIU/mL (0.358-3.74) Glucose (Fingerstick) 83 mg/dL (70-99) Assessment/Plan GI has scheduled him for an EGD today we will follow-up on results may need surgical intervention for his cholelithiasis Justicifation of Admission Dx: Justifications for Admission: Justification of Admission Dx: No (obs) RIAN MEDINA MD Feb 21, 2020 08:29
--- NOTE | 2020-02-21 09:04 | NUR ---
SW following. Discussed with RN, pt scheduled for EGD pending COVID-19 result. SW will continue to follow.
--- NOTE | 2020-02-21 10:42 | PDOC ---
Subjective: Subjective: If he's just going to sit here all weekend without getting any testing done he'd like to go home. Frustrated re: COVID swab situation. Objective: Objective: D/w nurse yesterday afternoon - pt refused COVID swab and EGD scheduled for today was cancelled as a result. Apparently COVID swab collected later in the evening. Vital Signs: Vital Signs Date Time Temp Pulse Resp B/P (MAP) Pulse Ox O2 Delivery O2 Flow Rate FiO2 02/21/20 07:17 Room Air 02/21/20 07:00 98.7 70 18 135/74 (94) 96 98.7 Labs: Laboratory Tests Test 02/20/20 13:45 02/20/20 16:28 02/20/20 20:39 02/21/20 07:05 Glucose (Fingerstick) 86 mg/dL (70-99) 83 mg/dL (70-99) 126 mg/dL (70-99) 83 mg/dL (70-99) Test 02/21/20 10:36 Glucose (Fingerstick) 103 mg/dL (70-99) Imaging: CT A/P IMPRESSION: 1. No acute process identified within the abdomen or pelvis. 2. Diffuse severe hepatic steatosis. 3. Submucosal fat deposition noted probably within the ascending colon, likely sequela of chronic repetitive inflammation. PE: GEN: NAD LUNGS: CTAB HEART: RRR ABD: soft NEURO/PSYCH: A & O 3 A/P: Abd pain, n/v, weight loss, diarrhea Leukopenia, thrombocytopenia, elevated LFTs Cholelithiasis, hepatic steatosis -- Will discuss their frustrations w/ Dr. Carlson. CT noted. COVID-19 status pending. 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 Justicifation of Admission Dx: Justifications for Admission: Justification of Admission Dx: No (obs) YAW HARVEY Feb 21, 2020 10:42
[2020-02-21 11:02] VITALS: BP 138/77
[2020-02-21] MEDS ORDERED: POTASSIUM CHLORIDE 20 MEQ TABLET.ER. PO ONE (11:15)
[2020-02-21] MEDS ORDERED: PANTOPRAZOLE IV PUSH 40 MG VIAL. IVP SCH (12:00)
--- NOTE | 2020-02-21 12:15 | NUR ---
Discharge Note: LADI DELEON S4 RACINE Discharge instructions and discharge home medications reviewed with Patient and a copy given. All questions have been answered and understanding verbalized. The following instructions and handouts were given: informationa about follow up appointments, medications, etc. Discontinued lines and drains: IV line in left forearm removed, catheter tip intact. Patient discharged to home with self care with , wheelchair used for mobility to discharge vehicle.
[2020-02-22 00:07] LABS: HEMOGLOBIN A1C 5.3 % (4.8-5.6)
== END 2020-02-21 12:15 | disposition home or self-care (01) | DRG 446 ==
LOC: 4 NORTH 12:42
PROVIDERS: ADMIT Internal Medicine; ATTEND Internal Medicine
DX: K80.10 Calculus of gallbladder with chronic cholecystitis without obstruction (principal); R19.7 Diarrhea, unspecified; G89.29 Other chronic pain; M54.9 Dorsalgia, unspecified; I10 Essential (primary) hypertension; K76.0 Fatty (change of) liver, not elsewhere classified; D72.819 Decreased white blood cell count, unspecified; D69.6 Thrombocytopenia, unspecified; R79.89 Other specified abnormal findings of blood chemistry; E78.5 Hyperlipidemia, unspecified; E11.9 Type 2 diabetes mellitus without complications; Z53.20 Procedure and treatment not carried out because of patient's decision for unspecified reasons; R63.4 Abnormal weight loss; Z68.29 Body mass index [BMI] 29.0-29.9, adult; Z79.899 Other long term (current) drug therapy
CPT/HCPCS: 36415; 74177; 80053; 82962; 83036; 83690; 84443; 85025; 85610; C9113; J1815; J2060; J2405; J7030; Q9967; U0003; G0378; Q0169

== ENCOUNTER → 2020-02-27 | Day surgery (SDC) | payer MEDICARE ==
[~2020-02-27] MED LIST changes: +AMLO10TA8 PO; +IV RINGERS,LACTATED 1000ML 1,000 ML IV ONE; +IV RINGERS,LACTATED 1000ML 1,000 ML IV SCH; +LEVO88TA4 PO; +LIDOCAINE 2% PF 5 ML VIAL. ONE; +LISI-334 PO; +PROPOFOL 10 MG/ML (20ML) VIAL. IV ONE
[2020-02-27 13:00] VITALS: BP 99/60
== END ==
LOC: SURG 10:53
PROVIDERS: ATTEND Internal Medicine Gastroenterology
DX: R11.2 Nausea with vomiting, unspecified (principal); K29.50 Unspecified chronic gastritis without bleeding; I10 Essential (primary) hypertension; E78.5 Hyperlipidemia, unspecified; E11.9 Type 2 diabetes mellitus without complications; F19.90 Other psychoactive substance use, unspecified, uncomplicated; Z72.89 Other problems related to lifestyle; Z79.84 Long term (current) use of oral hypoglycemic drugs
CPT/HCPCS: 43235; J2704; J3490

== ENCOUNTER → 2020-03-07 | Outpatient (CLI) | payer MEDICARE ==
[2020-02-27 13:00] VITALS: BP 99/60
[~2020-03-07] MED LIST changes: -IV RINGERS,LACTATED 1000ML 1,000 ML IV ONE; -IV RINGERS,LACTATED 1000ML 1,000 ML IV SCH; -LIDOCAINE 2% PF 5 ML VIAL. ONE; +OXYC1TAB15 PO; -PROPOFOL 10 MG/ML (20ML) VIAL. IV ONE; +TRAM50TA PO
== END | disposition home or self-care (01) ==
LOC: LAB 11:27
PROVIDERS: ATTEND Surgery
DX: Z11.59 Encounter for screening for other viral diseases (principal)
CPT/HCPCS: U0003-CS

== ENCOUNTER 2020-03-09 05:55 | Day surgery (SDC) | payer MEDICARE ==
[~2020-03-09 05:55] MED LIST changes: -OXYC1TAB15 PO; -TRAM50TA PO
[2020-03-09] MEDS ORDERED: ACETAMINOPHEN 500 MG TABLET PO ONE (06:30)
[2020-03-09] MEDS ORDERED: DESFLURANE 31 TO 60 MINUTES IH ONE (06:56)
[2020-03-09] MEDS ORDERED: DEXAMETHASONE SOD PHOS 4 MG/ML VIAL ONE (06:56)
[2020-03-09] MEDS ORDERED: MIDAZOLAM HCL/PF 2 MG/2 ML VIAL. ONE (06:56)
[2020-03-09] MEDS ORDERED: ONDANSETRON PF 4 MG/2 ML VIAL. ONE (06:56)
[2020-03-09] MEDS ORDERED: fentaNYL PF VIAL 250 MCG/5 ML VIAL ONE (06:56)
[2020-03-09] MEDS ORDERED: PROPOFOL 10 MG/ML (20ML) VIAL. IV ONE (06:56)
[2020-03-09] MEDS ORDERED: ROCURONIUM 50 MG/5 ML VIAL. ONE (06:56)
[2020-03-09] MEDS ORDERED: HYDROmorphone 2 MG/ML VIAL IV PRN (07:00)
[2020-03-09] MEDS ORDERED: ONDANSETRON PF 4 MG/2 ML VIAL. IV PRN (07:00)
[2020-03-09] MEDS ORDERED: IV RINGERS,LACTATED 1000ML 1,000 ML IV SCH (07:00)
[2020-03-09] MEDS ORDERED: MORPHINE SULFATE 2 MG/ML VIAL. IV PRN (07:00)
[2020-03-09] MEDS ORDERED: fentaNYL PF VIAL 100 MCG/2 ML VIAL IV PRN (07:00)
[2020-03-09] MEDS ORDERED: LIDOCAINE 1% PF 2 ML VIAL. ID PRN (07:00)
[2020-03-09] MEDS ORDERED: BUPIVACAINE-EPI 0.25%-1:200000 MPF 30 ML VIAL. ONE (07:01)
[2020-03-09] MEDS ORDERED: SURGICEL HEMOSTAT 4X8 EACH. ONE (07:01)
[2020-03-09] MEDS ORDERED: IOHEXOL 300 MG/ML 50 ML VIAL. ONE (07:01)
--- NOTE | 2020-03-09 07:18 | PDOC1 ---
History and Physical Date of Admission Date of Admission DATE: 03/09/20 TIME: 07:16 Identification/Chief Complaint Chief Complaint Epigastric to right upper quadrant abdominal pain Source Source: Chart review, Patient History of Present Illness History of Present Illness 50-year-old male recently hospitalized for abdominal pain radiating from the epigastric area to the right upper quadrant he had had also significant nausea and some vomiting EGD was done at that time which showed normal EGD CT scan showed numerous gallstones but no inflammation of his continued abdominal pain and nausea Past Medical History Cardiovascular: HTN, Hyperlipidemia Endocrine: Diabetes Past Surgical History Past Surgical History: Other Family History Family History: No Significant Social History ALCOHOL: none Drugs: Marijuana Current Medications Current Medications Current Medications Ondansetron HCl (Zofran) 4 mg PRN Q6HRS PRN IV NAUSEA/VOMITING; Start 03/09/20 at 07:00; Stop 03/10/20 at 06:59 Fentanyl Citrate (Fentanyl 2ml Vial) 25 mcg PRN Q5MIN PRN IV MILD PAIN 1-3; Start 03/09/20 at 07:00; Stop 03/10/20 at 06:59 Fentanyl Citrate (Fentanyl 2ml Vial) 50 mcg PRN Q5MIN PRN IV MODERATE TO SEVERE PAIN; Start 03/09/20 at 07:00; Stop 03/10/20 at 06:59 Morphine Sulfate (Morphine Sulfate) 1 mg PRN Q10MIN PRN IV SEVERE PAIN 7-10; Start 03/09/20 at 07:00; Stop 03/10/20 at 06:59 Ringer's Solution 1,000 ml @ 30 mls/hr Q24H IV Last administered on 03/09/20at 06:35; Start 03/09/20 at 07:00; Stop 03/09/20 at 18:59 Lidocaine HCl (Xylocaine-Mpf 1% 2ml Vial) 2 ml PRN 1X PRN ID PRIOR TO IV START; Start 03/09/20 at 07:00; Stop 03/10/20 at 06:59 Hydromorphone HCl (Dilaudid) 0.5 mg PRN Q10MIN PRN IV SEV PAIN, Second choice; Start 03/09/20 at 07:00; Stop 03/10/20 at 06:59 Prochlorperazine Edisylate (Compazine) 5 mg PACU PRN PRN IV NAUSEA, MRX1; Start 03/09/20 at 07:00; Stop 03/10/20 at 06:59 Acetaminophen (Tylenol) 1,000 mg 1X ONCE PO Last administered on 03/09/20at 06:35; Start 03/09/20 at 06:30; Stop 03/09/20 at 06:31; Status DC Ondansetron HCl (Zofran) 4 mg STK-MED ONCE .ROUTE ; Start 03/09/20 at 06:56; Stop 03/09/20 at 06:56; Status DC Propofol (Diprivan) 200 mg STK-MED ONCE IV ; Start 03/09/20 at 06:56; Stop 03/09/20 at 06:56; Status DC Dexamethasone Sodium Phosphate (Decadron) 4 mg STK-MED ONCE .ROUTE ; Start 03/09/20 at 06:56; Stop 03/09/20 at 06:56; Status DC Desflurane (Suprane) 30 ml STK-MED ONCE IH ; Start 03/09/20 at 06:56; Stop 03/09/20 at 06:56; Status DC Midazolam HCl (Versed) 2 mg STK-MED ONCE .ROUTE ; Start 03/09/20 at 06:56; Stop 03/09/20 at 06:56; Status DC Fentanyl Citrate (Fentanyl 5ml Vial) 250 mcg STK-MED ONCE .ROUTE ; Start 03/09/20 at 06:56; Stop 03/09/20 at 06:56; Status DC Rocuronium [place] (Zemuron) 50 mg STK-MED ONCE .ROUTE ; Start 03/09/20 at 06:56; Stop 03/09/20 at 06:56; Status DC Iohexol (Omnipaque 300 Mg/ml) 50 ml STK-MED ONCE .ROUTE ; Start 03/09/20 at 07:01; Stop 03/09/20 at 07:01; Status DC Cellulose (Surgicel Hemostat 4x8) 1 each STK-MED ONCE .ROUTE ; Start 03/09/20 at 07:01; Stop 03/09/20 at 07:01; Status DC Bupivacaine HCl/ Epinephrine Bitart (Sensorcaine-Epi 0.25%-1:491595 Mpf) 30 ml STK-MED ONCE .ROUTE ; Start 03/09/20 at 07:01; Stop 03/09/20 at 07:01; Status DC Lorazepam (Ativan Inj) 2 mg 1X ONCE IVP ; Start 03/09/20 at 07:15; Stop 03/09/20 at 07:16 Cefazolin Sodium/ Dextrose 50 ml @ 100 mls/hr 1X ONCE IV ; Start 03/09/20 at 07:15; Stop 03/09/20 at 07:44; Status UNV Lorazepam (Ativan Inj) 2 mg STK-MED ONCE .ROUTE ; Start 03/09/20 at 07:13; Stop 03/09/20 at 07:13; Status DC Active Scripts Active Reported Lisinopril 20 Mg Tablet 1 Tab PO DAILY Amlodipine Besylate 10 Mg Tablet 10 Mg PO DAILY Levothyroxine Sodium 88 Mcg Tablet 1 Tab PO DAILY Coreg (Carvedilol) 25 Mg Tablet 1 Tab PO DAILY08 Allergies Allergies: Coded Allergies: lorazepam (Verified Allergy, Intermediate, 03/09/20) DISORIENTED/ HALLUCINATIONS shellfish derived (Verified Allergy, Intermediate, 03/09/20) ROS Gastrointestinal: Yes Nausea, Yes Abdominal Pain Physical Exam General: Alert, Oriented X3, Cooperative, No acute distress HEENT: Atraumatic Lungs: Clear to auscultation, Normal air movement Heart: RRR, no murmurs Abdomen: Normal bowel sounds, Soft, Other (Mildly tender to palpation right upper quadrant) Rectal Exam: not examined Extremities: No edema Skin: No significant lesion Neuro: Normal speech Vitals Vitals Vital Signs Date Time Temp Pulse Resp B/P (MAP) Pulse Ox O2 Delivery O2 Flow Rate FiO2 03/09/20 06:32 97.3 71 20 98 97.3 03/09/20 06:29 181/111 Room Air Images Images CT scan of the abdomen showing multiple gallstones VTE Prophylaxis Ordered VTE Prophylaxis Devices: Yes VTE Pharmacological Prophylaxi: Contraindicated Assessment/Plan Assessment/Plan Symptomatic cholelithiasis plan laparoscopic cholecystectomy Justicifation of Admission Dx: Justifications for Admission: Justification of Admission Dx: No RIAN MEDINA MD Mar 09, 2020 07:18
[2020-03-09] MEDS ORDERED: GLYCOPYRROLATE 1 MG/5 ML VIAL. ONE (07:52)
[2020-03-09] MEDS ORDERED: NEOSTIGMINE METHYLSULFATE 5 MG/5 ML SYRINGE. ONE (07:53)
--- NOTE | 2020-03-09 08:15 | PDOC4 ---
Operative Note Operative Note Date: March 092019 at 08 13 Preoperative diagnosis: Symptomatic cholelithiasis Postoperative diagnosis: Same Procedure: Laparoscopic cholecystectomy Surgeon: Wilmer Specimen: Gallbladder Dictation: Patient is a 50-year-old gentleman who is had right upper quadrant epigastric abdominal pain and a CT scan showing multiple gallstones within the gallbladder. EGD was normal. Procedure of laparoscopic cholecystectomy was explained to the patient detail risk-benefit were also discussed including bleeding infection injury to intra-abdominal contents possibly necessitating fu rther or open operations alternatives to this procedure also discussed with patient who seemed to understand and gave both verbal and written consent to have the procedure performed. Patient was taken to the operating room placed in the supine position general anesthesia was initiated once patient was sleeping in bed his abdomen was prepped and draped usual sterile fashion using C hloraPrep. An area just below the umbilicus was injected quarter percent Marcaine with epinephrine incision was made 11 blade scalpel a varies needle was placed within the abdomen creating pneumoperitoneum once this was complete 11 mm port was placed and a 5 mm camera is placed within the abdomen which was inspected no other abnormalities were noted. 5 mm port was placed in the e pigastrium a 5 mm port was placed in the right midabdomen and a 5 mm port was placed in the right lateral abdomen. The dome of the gallbladder is grasped retracted cephalad the infundibulum of the gallbladder is grasped tract and laterally exposing the triangle that here tissues of the triangle were taken down exposing the cystic duct and cystic artery both were doubly clipped and transected. The gallbladder was taken off the liver with hook electrocautery placed in Endo Catch bag removed and the umbilicus right upper quadrant was irrigated and suctioned dry hemostasis deemed be appropriate and the pneumoperitoneum was reduced all ports were removed the fascial defect at the umbilicus was closed with a [id number] 0 Vicryl suture and the skin was reapproximated all port sites for subcuticular Monocryl Mastisol Steri-Strips and island dressings were applied. Patient was awakened and extubated in the operating room taken to recovery in stable condition all sponge instrument needle counts listed as correct estimated blood loss 5 mL. RIAN MEDINA MD Mar 09, 2020 08:15
--- NOTE | 2020-03-09 08:18 | DISCH ---
DISCHARGE INSTRUCTIONS Condition on Discharge Condition on Discharge: Stable Activity After Discharge Activity Instructions for Disc: Activity as tolerated Other activity instructions: No lifting more than 20 pounds for 2 weeks Diet after Discharge Diet after Discharge: Low Fat, Diabetic No Calorie Level Wound Incision Care Other wound/incision instructi: May shower in 24 hours Checks after Discharge Checks after discharge: Check blood press - daily, Check blood sugar, ac/hs, Check your Temp as needed Contacting the DR. after DC Call your doctor for: If your condition worsens Follow-Up Follow up with: Dr. Medina in 2 weeks Treatment/Equipment after DC Adaptive Equipment Issued: None RIAN MEDINA MD Mar 09, 2020 08:18
[2020-03-09] MEDS ORDERED: TRAM50TA PO (08:27)
[2020-03-09] MEDS ORDERED: OXYC1TAB15 PO (08:28)
[2020-03-09] MEDS ORDERED: NALOXONE 0.4 MG/ML VIAL. ONE (08:28)
[2020-03-09] MEDS ORDERED: fentaNYL PF VIAL 100 MCG/2 ML VIAL ONE ×2 (08:50→09:25)
[2020-03-09] MEDS: fentaNYL PF VIAL 100 MCG/2 ML VIAL IV PRN ×4 (08:55→09:50)
[2020-03-09] MEDS ORDERED: PROCHLORPERAZINE 10 MG/2 ML VIAL. ONE (09:25)
[2020-03-09] MEDS: PROCHLORPERAZINE 10 MG/2 ML VIAL. IV PRN ×2 (09:29→09:51)
[2020-03-09] MEDS ORDERED: oxyCODONE/APAP 5/325 1 TAB TABLET PO ONE (09:45)
[2020-03-09 10:09] VITALS: BP 141/92
--- NOTE | 2020-03-10 17:06 | PATHOLOGY ---
[facility] Accession Number: [id number] . 01 Material submitted: . gallbladder - GALLBLADDER AND CONTENTS . 01 Clinical history: . Chronic cholecystitis . 02 Diagnosis: Gallbladder, cholecystectomy: - Cholelithiasis. - Chronic cholecystitis with increased eosinophils. ([facility] 03/10/2020) [facility] 03/10/2020 1522 Local . 02 Comment: There is no evidence of malignancy. ([facility] 03/10/2020) . 02 Electronically signed: . Kulwant Stafford MD, Pathologist NPI- [id number] . 01 Gross description: . The specimen is received in formalin, labeled "Reece, Osorio, gallbladder and contents" and consists of a ragged previously punctured purple mattson partially fat encased gallbladder measuring 8.6 x 2.8 x 0.8 cm. The margin is inked. Opening reveals multiple, yellow, multifaceted calculi measuring 3.3 x 1.8 x 0.4 cm in aggregate and thick green bile. The mucosa is pink and granular with a wall thickness 0.1 cm. No gross lesions are identified. Coin Box Collector sections are submitted in A1. ([facility]; 03/09/2020) [id number] 03/10/2020 1521 Local . 02 Pathologist provided ICD-10: K80.10 . 02 CPT . 776078 Specimen Comment: A courtesy copy of this report has been sent to [phone], [phone] Specimen Comment: [id number] Specimen Comment: Report sent to / DR RUSSO Performed at: [address], [place], [place] [id number] MD Ryan Alonso MD Phone: [phone] Performed at: 02 [facility] [address] [place], [place] [id number] MD Kulwant Stafford MD Phone: [phone]
== END 2020-03-09 10:33 | disposition home or self-care (01) ==
LOC: SURG 05:55
PROVIDERS: ATTEND Surgery
DX: K80.10 Calculus of gallbladder with chronic cholecystitis without obstruction (principal); I10 Essential (primary) hypertension; K21.9 Gastro-esophageal reflux disease without esophagitis; E11.9 Type 2 diabetes mellitus without complications; E78.5 Hyperlipidemia, unspecified; Z72.89 Other problems related to lifestyle; Z87.39 Personal history of other diseases of the musculoskeletal system and connective tissue; Z79.84 Long term (current) use of oral hypoglycemic drugs
CPT/HCPCS: 47562; J0696; J0780; J1100; J2060; J2250; J2310; J2405; J2704; J2710; J3010; J3490; J7030; J7120; 88304; J0690; Q9967